=== PATIENT | male | born 1950 | race Caucasian/White ===

== ENCOUNTER 2017-12-09 02:04 | Inpatient (IN) | payer MEDICARE, OTHER ==
[2017-12-09] MEDS: SOD CHLORIDE 0.9% 1,000 ML IV ×2 (03:01→05:24)
[2017-12-09] MEDS: ONDANSETRON 4 MG INJ IV (03:01)
[2017-12-09] MEDS: morphine 4 MG/ML VIAL IV (03:01)
[2017-12-09 03:10] LABS: ADD MAN DIFF? NO
[2017-12-09 03:15] LABS: BASOPHIL # 0.1 10^3/ul (0.0-0.1); BASOPHILS % 0.5 % (0.0-2.0); EOSINOPHILS % 0.3 % (0.0-7.0); HEMATOCRIT 43.9 % (42.0-52.0); HEMOGLOBIN 14.3 g/dl (14.0-18.0); LYMPHOCYTES # 1.8 10^3/ul (0.8-2.9); LYMPHOCYTES % 13.6 % (15.0-51.0); MEAN CORPUSCULAR HEMOGLOBIN 28.4 pg (29.0-33.0); MEAN CORPUSCULAR HGB CONC 32.6 g/dl (32.0-37.0); MEAN CORPUSCULAR VOLUME 87.1 fl (82.0-101.0); MONOCYTES % 7.7 % (0.0-11.0); NEUTROPHILS % 77.6 % (39.0-77.0); PLATELET COUNT 283 10^3/UL (140-415); RED BLOOD COUNT 5.04 10^6/ul (4.70-6.10); RED CELL DISTRIBUTION WIDTH 14.6 % (11.5-14.5)
[2017-12-09 03:15] LABS: WHITE BLOOD COUNT 12.9 10^3/ul (4.8-10.8)
[2017-12-09 03:33] LABS: ALANINE AMINOTRANSFERASE 22 IU/L (13-69); ALBUMIN 4.5 g/dl (3.3-4.9); ALBUMIN/GLOBULIN RATIO 1.32; ALKALINE PHOSPHATASE 115 IU/L (42-121); ANION GAP 16 (8-16); ASPARTATE AMINO TRANSFERASE 30 IU/L (15-46); BILIRUBIN,INDIRECT 0.2 mg/dl (0-1.1); BILIRUBIN,TOTAL 0.2 mg/dl (0.2-1.3); BLOOD UREA NITROGEN 20 mg/dl (7-20); CARBON DIOXIDE 25 mmol/L (21-31); CHLORIDE 101 mmol/L (97-110); CREATININE 0.88 mg/dl (0.61-1.24); GLUCOSE 149 mg/dl (70-220); LIPASE 104 U/L (23-300); POTASSIUM 4.4 mmol/L (3.5-5.1); SODIUM 138 mmol/L (135-144); TOTAL PROTEIN 7.9 g/dl (6.1-8.1)
[2017-12-09 03:44] LABS: LACTIC ACID 3.8 mmol/L (0.5-2.0)
[2017-12-09 04:49] LABS: ADD UMIC NO; UR ASCORBIC ACID NEGATIVE (NEGATIVE); UR BILIRUBIN (Dip) NEGATIVE (NEGATIVE); UR BLOOD (Dip) NEGATIVE (NEGATIVE); UR CLARITY CLEAR (CLEAR); UR COLOR YELLOW (YELLOW); UR GLUCOSE (Dip) NEGATIVE (NEGATIVE); UR KETONES (Dip) 1+ mg/dL (NEGATIVE); UR LEUKOCYTE ESTERASE (Dip) NEGATIVE Leu/ul (NEGATIVE); UR NITRITE (Dip) NEGATIVE (NEGATIVE); UR SPECIFIC GRAVITY (Dip) 1.017 (1.003-1.030); UR TOTAL PROTEIN (Dip) NEGATIVE (NEGATIVE); UR UROBILINOGEN (Dip) NEGATIVE (NEGATIVE)
[2017-12-09] MEDS ORDERED: ONDANSETRON 4 MG INJ IV (06:30)
[2017-12-09] MEDS ORDERED: morphine 2 MG INJ IV (06:30)
[2017-12-09] MEDS: DEXTROSE 5%-0.45% NACL 1,000 ML IV ×3 (07:02→20:54)
[2017-12-09] MEDS: CIPROFLOXACIN 400MG/D5W 200 ML IVPB ×2 (08:27→22:51)
[2017-12-09] MEDS: metroNIDAZOLE 500 MG/NS (PMX) 100 ML IVPB ×3 (08:28→20:54)
[2017-12-09 08:39] LABS: LACTIC ACID 0.9 mmol/L (0.5-2.0)
[2017-12-10 05:26] LABS: ADD MAN DIFF? NO
[2017-12-10] MEDS: metroNIDAZOLE 500 MG/NS (PMX) 100 ML IVPB ×3 (05:27→21:34)
[2017-12-10 05:33] LABS: WHITE BLOOD COUNT 5.4 10^3/ul (4.8-10.8)
[2017-12-10 05:33] LABS: BASOPHILS % 0.7 % (0.0-2.0); EOSINOPHILS # 0.1 10^3/ul (0.0-0.5); EOSINOPHILS % 1.3 % (0.0-7.0); HEMATOCRIT 37.7 % (42.0-52.0); HEMOGLOBIN 12.1 g/dl (14.0-18.0); LYMPHOCYTES % 19.4 % (15.0-51.0); MEAN CORPUSCULAR HEMOGLOBIN 28.7 pg (29.0-33.0); MEAN CORPUSCULAR HGB CONC 32.1 g/dl (32.0-37.0); MEAN CORPUSCULAR VOLUME 89.3 fl (82.0-101.0); MEAN PLATELET VOLUME 9.8 fl (7.4-10.4); MONOCYTE # 0.6 10^3/ul (0.3-0.9); MONOCYTES % 11.4 % (0.0-11.0); NEUTROPHIL # 3.6 10^3/ul (1.6-7.5); PLATELET COUNT 188 10^3/UL (140-415); RED BLOOD COUNT 4.22 10^6/ul (4.70-6.10); RED CELL DISTRIBUTION WIDTH 15.1 % (11.5-14.5)
[2017-12-10 06:13] LABS: ALANINE AMINOTRANSFERASE 25 IU/L (13-69); ALBUMIN 3.2 g/dl (3.3-4.9); ALBUMIN/GLOBULIN RATIO 1.03; ALKALINE PHOSPHATASE 68 IU/L (42-121); ANION GAP 13 (8-16); ASPARTATE AMINO TRANSFERASE 20 IU/L (15-46); BILIRUBIN,INDIRECT 0.1 mg/dl (0-1.1); BILIRUBIN,TOTAL 0.1 mg/dl (0.2-1.3); BLOOD UREA NITROGEN 10 mg/dl (7-20); CALCIUM 7.7 mg/dl (8.4-10.2); CARBON DIOXIDE 26 mmol/L (21-31); CHLORIDE 108 mmol/L (97-110); CREATININE 0.74 mg/dl (0.61-1.24); GLUCOSE 111 mg/dl (70-220); POTASSIUM 3.8 mmol/L (3.5-5.1); SODIUM 143 mmol/L (135-144); TOTAL PROTEIN 6.3 g/dl (6.1-8.1)
[2017-12-10] MEDS: DEXTROSE 5%-0.45% NACL 1,000 ML IV (06:33)
[2017-12-10] MEDS: CIPROFLOXACIN 400MG/D5W 200 ML IVPB ×2 (08:50→20:42)
[2017-12-10] MEDS: KETOROLAC 30 MG INJ IV (10:46)
[2017-12-10] MEDS: FAMOTIDINE 20 MG INJ IV ×2 (11:03→20:43)
[2017-12-10 13:37] LABS: HEMOGLOBIN A1C 5.6 % (0-5.9)
[2017-12-11 05:15] LABS: ADD MAN DIFF? NO; RED CELL DISTRIBUTION WIDTH 14.6 % (11.5-14.5)
[2017-12-11 05:27] LABS: WHITE BLOOD COUNT 5.3 10^3/ul (4.8-10.8)
[2017-12-11 05:27] LABS: BASOPHILS % 0.8 % (0.0-2.0); EOSINOPHILS # 0.1 10^3/ul (0.0-0.5); EOSINOPHILS % 1.5 % (0.0-7.0); HEMATOCRIT 39.6 % (42.0-52.0); HEMOGLOBIN 12.8 g/dl (14.0-18.0); LYMPHOCYTES # 1.1 10^3/ul (0.8-2.9); LYMPHOCYTES % 20.7 % (15.0-51.0); MEAN CORPUSCULAR HEMOGLOBIN 28.6 pg (29.0-33.0); MEAN CORPUSCULAR HGB CONC 32.3 g/dl (32.0-37.0); MEAN CORPUSCULAR VOLUME 88.4 fl (82.0-101.0); MEAN PLATELET VOLUME 9.7 fl (7.4-10.4); MONOCYTE # 0.7 10^3/ul (0.3-0.9); MONOCYTES % 12.3 % (0.0-11.0); NEUTROPHIL # 3.4 10^3/ul (1.6-7.5); NEUTROPHILS % 64.5 % (39.0-77.0); PLATELET COUNT 200 10^3/UL (140-415); RED BLOOD COUNT 4.48 10^6/ul (4.70-6.10)
[2017-12-11 05:43] LABS: MAGNESIUM 2.1 mg/dl (1.7-2.5)
[2017-12-11 05:43] LABS: PHOSPHORUS 2.8 mg/dl (2.5-4.9)
[2017-12-11 05:45] LABS: ALANINE AMINOTRANSFERASE 26 IU/L (13-69); ALBUMIN 3.3 g/dl (3.3-4.9); ALBUMIN/GLOBULIN RATIO 1.03; ALKALINE PHOSPHATASE 72 IU/L (42-121); ANION GAP 13 (8-16); ASPARTATE AMINO TRANSFERASE 22 IU/L (15-46); BILIRUBIN,INDIRECT 0.2 mg/dl (0-1.1); BILIRUBIN,TOTAL 0.2 mg/dl (0.2-1.3); BLOOD UREA NITROGEN 10 mg/dl (7-20); CALCIUM 8.3 mg/dl (8.4-10.2); CARBON DIOXIDE 28 mmol/L (21-31); CHLORIDE 108 mmol/L (97-110); CREATININE 0.82 mg/dl (0.61-1.24); GLUCOSE 91 mg/dl (70-220); POTASSIUM 4.3 mmol/L (3.5-5.1); SODIUM 145 mmol/L (135-144); TOTAL PROTEIN 6.5 g/dl (6.1-8.1)
[2017-12-11] MEDS: metroNIDAZOLE 500 MG/NS (PMX) 100 ML IVPB (06:30)
[2017-12-11] MEDS: FAMOTIDINE 20 MG INJ IV (08:27)
[2017-12-11] MEDS: CIPROFLOXACIN 400MG/D5W 200 ML IVPB (08:27)
== END 2017-12-11 11:50 | disposition home or self-care (01) | DRG 328 ==
LOC: E/R 02:04 → MS2 05:12 → MS1 19:04
PROC: 0D967ZZ Drainage of Stomach, Via Natural or Artificial Opening (ICD-10-PCS; principal; 2017-12-09)
DX: K56.609 Unspecified intestinal obstruction, unspecified as to partial versus complete obstruction (principal); K80.20 Calculus of gallbladder without cholecystitis without obstruction; Z87.19 Personal history of other diseases of the digestive system; Z90.49 Acquired absence of other specified parts of digestive tract
CPT/HCPCS: 36415; 74176; 76705; 80053; 81003; 83036; 83605; 83690; 83735; 84100; 85025; 87045; 96374; 96375; 99285-25

== ENCOUNTER 2018-01-08 14:33 | Inpatient (IN) | payer MEDICARE, OTHER ==
[2018-01-08 17:31] LABS: ADD MAN DIFF? NO
[2018-01-08 17:34] LABS: BASOPHILS % 0.2 % (0.0-2.0); EOSINOPHILS % 0.1 % (0.0-7.0); LYMPHOCYTES % 6.5 % (15.0-51.0); RED CELL DISTRIBUTION WIDTH 14.6 % (11.5-14.5)
[2018-01-08] MEDS: SOD CHLORIDE 0.9% 1,000 ML IV ×2 (17:35→19:25)
[2018-01-08] MEDS: FAMOTIDINE 20 MG INJ IV (17:35)
[2018-01-08] MEDS: morphine 4 MG/ML VIAL IV (17:35)
[2018-01-08] MEDS: ONDANSETRON 4 MG INJ IV (17:35)
[2018-01-08 17:37] LABS: WHITE BLOOD COUNT 12.4 10^3/ul (4.8-10.8)
[2018-01-08 17:37] LABS: HEMOGLOBIN 14.3 g/dl (14.0-18.0); LYMPHOCYTES # 0.8 10^3/ul (0.8-2.9); MEAN CORPUSCULAR HEMOGLOBIN 28.7 pg (29.0-33.0); MEAN CORPUSCULAR HGB CONC 32.5 g/dl (32.0-37.0); MEAN CORPUSCULAR VOLUME 88.2 fl (82.0-101.0); MEAN PLATELET VOLUME 9.6 fl (7.4-10.4); MONOCYTE # 1.2 10^3/ul (0.3-0.9); MONOCYTES % 9.5 % (0.0-11.0); NEUTROPHIL # 10.3 10^3/ul (1.6-7.5); NEUTROPHILS % 83.3 % (39.0-77.0); PLATELET COUNT 247 10^3/UL (140-415); RED BLOOD COUNT 4.99 10^6/ul (4.70-6.10)
[2018-01-08 17:51] LABS: ALANINE AMINOTRANSFERASE 27 IU/L (13-69); ALBUMIN/GLOBULIN RATIO 1.11; ALKALINE PHOSPHATASE 84 IU/L (42-121); ANION GAP 17 (8-16); ASPARTATE AMINO TRANSFERASE 21 IU/L (15-46); BILIRUBIN,INDIRECT 0.4 mg/dl (0-1.1); BILIRUBIN,TOTAL 0.4 mg/dl (0.2-1.3); BLOOD UREA NITROGEN 19 mg/dl (7-20); CARBON DIOXIDE 27 mmol/L (21-31); CHLORIDE 104 mmol/L (97-110); CREATININE 0.75 mg/dl (0.61-1.24); GLUCOSE 108 mg/dl (70-220); LIPASE 55 U/L (23-300); POTASSIUM 4.7 mmol/L (3.5-5.1); SODIUM 143 mmol/L (135-144); TOTAL PROTEIN 7.6 g/dl (6.1-8.1)
[2018-01-08] MEDS ORDERED: ACETAMINOPHEN 325 MG TAB PO ×2 (18:30→19:30)
[2018-01-08] MEDS ORDERED: ONDANSETRON 4 MG INJ IV ×2 (18:30→19:30)
[2018-01-08 19:01] LABS: ADD UMIC YES; UR ASCORBIC ACID NEGATIVE (NEGATIVE); UR BILIRUBIN (Dip) 1+ mg/dL (NEGATIVE); UR BLOOD (Dip) NEGATIVE (NEGATIVE); UR CLARITY CLEAR (CLEAR); UR COLOR AMBER (YELLOW); UR GLUCOSE (Dip) NEGATIVE (NEGATIVE); UR KETONES (Dip) 1+ mg/dL (NEGATIVE); UR LEUKOCYTE ESTERASE (Dip) NEGATIVE Leu/ul (NEGATIVE); UR MUCUS FEW /HPF (NONE SEEN); UR NITRITE (Dip) NEGATIVE (NEGATIVE); UR RBC 2 /HPF (0-5); UR SPECIFIC GRAVITY (Dip) 1.032 (1.003-1.030); UR TOTAL PROTEIN (Dip) 1+ mg/dl (NEGATIVE); UR UROBILINOGEN (Dip) 1+ mg/dL (NEGATIVE); UR WBC 1 /HPF (0-5)
[2018-01-08] MEDS ORDERED: NACL 0.9% 3 ML SYG IV (19:30)
[2018-01-08] MEDS: DEXTROSE 5%-0.45% NACL 1,000 ML IV (21:32)
[2018-01-08] MEDS: morphine 2 MG INJ IV (22:16)
[2018-01-08 23:10] LABS: LACTIC ACID 0.8 mmol/L (0.5-2.0)
[2018-01-09] MEDS ORDERED: HYDROPHILIC BASE 454 GM OINT TOP (02:00)
[2018-01-09] MEDS: CLOBETASOL 0.05% 15 GM OINT TOP ×3 (02:48→20:23)
[2018-01-09] MEDS: PANTOPRAZOLE 40 MG INJ IV (05:48)
[2018-01-09 06:49] LABS: ADD MAN DIFF? NO
[2018-01-09 06:52] LABS: WHITE BLOOD COUNT 7.3 10^3/ul (4.8-10.8)
[2018-01-09 06:52] LABS: BASOPHILS % 0.4 % (0.0-2.0); EOSINOPHILS % 0.4 % (0.0-7.0); HEMATOCRIT 37.1 % (42.0-52.0); HEMOGLOBIN 11.9 g/dl (14.0-18.0); LYMPHOCYTES % 13.8 % (15.0-51.0); MEAN CORPUSCULAR HEMOGLOBIN 28.8 pg (29.0-33.0); MEAN CORPUSCULAR HGB CONC 32.1 g/dl (32.0-37.0); MEAN CORPUSCULAR VOLUME 89.8 fl (82.0-101.0); MEAN PLATELET VOLUME 9.8 fl (7.4-10.4); MONOCYTE # 0.9 10^3/ul (0.3-0.9); NEUTROPHIL # 5.4 10^3/ul (1.6-7.5); NEUTROPHILS % 73.4 % (39.0-77.0); PLATELET COUNT 205 10^3/UL (140-415); RED BLOOD COUNT 4.13 10^6/ul (4.70-6.10); RED CELL DISTRIBUTION WIDTH 14.8 % (11.5-14.5)
[2018-01-09 07:18] LABS: ANION GAP 10 (8-16); BLOOD UREA NITROGEN 15 mg/dl (7-20); CALCIUM 7.6 mg/dl (8.4-10.2); CARBON DIOXIDE 26 mmol/L (21-31); CHLORIDE 109 mmol/L (97-110); CREATININE 0.65 mg/dl (0.61-1.24); GLUCOSE 106 mg/dl (70-220); PHOSPHORUS 2.9 mg/dl (2.5-4.9); SODIUM 141 mmol/L (135-144)
[2018-01-09] MEDS: DEXTROSE 5%-0.45% NACL 1,000 ML IV ×2 (08:46→22:06)
[2018-01-09] MEDS: DIATR MEGLU/DIATRIZOATE SODIUM 120 ML BTL PO (09:17)
[2018-01-09] MEDS: AQUAPHOR 52.5 GM OINT TOP ×2 (09:18→20:23)
[2018-01-09] MEDS: morphine 2 MG INJ IV (09:29)
[2018-01-10] MEDS: DEXTROSE 5%-0.45% NACL 1,000 ML IV (04:46)
[2018-01-10] MEDS: PANTOPRAZOLE 40 MG INJ IV (05:44)
[2018-01-10 06:06] LABS: ADD MAN DIFF? NO
[2018-01-10 06:09] LABS: WHITE BLOOD COUNT 4.6 10^3/ul (4.8-10.8)
[2018-01-10 06:09] LABS: BASOPHILS % 0.9 % (0.0-2.0); EOSINOPHILS # 0.1 10^3/ul (0.0-0.5); EOSINOPHILS % 2.2 % (0.0-7.0); HEMATOCRIT 39.8 % (42.0-52.0); HEMOGLOBIN 12.4 g/dl (14.0-18.0); LYMPHOCYTES # 1.2 10^3/ul (0.8-2.9); LYMPHOCYTES % 25.6 % (15.0-51.0); MEAN CORPUSCULAR HEMOGLOBIN 28.2 pg (29.0-33.0); MEAN CORPUSCULAR HGB CONC 31.2 g/dl (32.0-37.0); MEAN CORPUSCULAR VOLUME 90.5 fl (82.0-101.0); MEAN PLATELET VOLUME 10.1 fl (7.4-10.4); MONOCYTE # 0.7 10^3/ul (0.3-0.9); MONOCYTES % 14.4 % (0.0-11.0); NEUTROPHIL # 2.6 10^3/ul (1.6-7.5); NEUTROPHILS % 56.5 % (39.0-77.0); PLATELET COUNT 226 10^3/UL (140-415)
[2018-01-10 06:33] LABS: ANION GAP 14 (8-16); BLOOD UREA NITROGEN 10 mg/dl (7-20); CARBON DIOXIDE 27 mmol/L (21-31); CHLORIDE 108 mmol/L (97-110); CREATININE 0.74 mg/dl (0.61-1.24); GLUCOSE 99 mg/dl (70-220); MAGNESIUM 2.1 mg/dl (1.7-2.5); POTASSIUM 4.4 mmol/L (3.5-5.1); SODIUM 145 mmol/L (135-144)
[2018-01-10] MEDS: CLOBETASOL 0.05% 15 GM OINT TOP (09:31)
[2018-01-10] MEDS: AQUAPHOR 52.5 GM OINT TOP (09:31)
== END 2018-01-10 18:43 | disposition home or self-care (01) | DRG 390 ==
LOC: E/R 14:33 → PP2 18:22
DX: K56.50 Intestinal adhesions [bands], unspecified as to partial versus complete obstruction (principal); L40.9 Psoriasis, unspecified
CPT/HCPCS: 71045; 74019; 74176; 80048; 80053; 81001; 83605; 83690; 83735; 84100; 85025; 96374; 96375; 99291-25

== ENCOUNTER → 2018-04-11 21:36 | Emergency (ER) | payer SELFPAY, OTHER, MEDICARE | END | disposition left against medical advice (07) | LOC: E/R 21:36 | DX: Z53.21 Procedure and treatment not carried out due to patient leaving prior to being seen by health care provider (principal) ==

== ENCOUNTER 2018-11-06 08:33 | Inpatient (IN) | payer MEDICARE, OTHER ==
[2018-11-06 09:27] LABS: ADD MAN DIFF? NO
[2018-11-06 09:28] LABS: WHITE BLOOD COUNT 8.5 10^3/ul (4.8-10.8)
[2018-11-06 09:28] LABS: BASOPHILS % 0.4 % (0.0-2.0); EOSINOPHILS # 0.1 10^3/ul (0.0-0.5); EOSINOPHILS % 0.7 % (0.0-7.0); HEMATOCRIT 37.6 % (42.0-52.0); HEMOGLOBIN 11.6 g/dl (14.0-18.0); LYMPHOCYTES % 11.5 % (15.0-51.0); MEAN CORPUSCULAR HEMOGLOBIN 26.1 pg (29.0-33.0); MEAN CORPUSCULAR HGB CONC 30.9 g/dl (32.0-37.0); MEAN CORPUSCULAR VOLUME 84.5 fl (82.0-101.0); MEAN PLATELET VOLUME 9.7 fl (7.4-10.4); MONOCYTE # 1.1 10^3/ul (0.3-0.9); MONOCYTES % 13.1 % (0.0-11.0); NEUTROPHIL # 6.3 10^3/ul (1.6-7.5); NEUTROPHILS % 73.9 % (39.0-77.0); PLATELET COUNT 187 10^3/UL (140-415); RED BLOOD COUNT 4.45 10^6/ul (4.70-6.10); RED CELL DISTRIBUTION WIDTH 17.4 % (11.5-14.5)
[2018-11-06] MEDS: ONDANSETRON 4 MG INJ IV ×2 (09:29→22:51)
[2018-11-06] MEDS: SOD CHLORIDE 0.9% 1,000 ML IV (09:29)
[2018-11-06] MEDS: morphine 4 MG/ML VIAL IV (09:29)
[2018-11-06] MEDS ORDERED: ACETAMINOPHEN 325 MG TAB PO (09:30)
[2018-11-06] MEDS ORDERED: ONDANSETRON 4 MG INJ IV (09:30)
[2018-11-06 09:48] LABS: INR 0.95; PROTIME 12.8 Sec (11.9-14.9)
[2018-11-06 09:49] LABS: ALANINE AMINOTRANSFERASE 25 IU/L (13-69); ALBUMIN 3.8 g/dl (3.3-4.9); ALBUMIN/GLOBULIN RATIO 1.26; ALKALINE PHOSPHATASE 76 IU/L (42-121); ANION GAP 11 (5-13); ASPARTATE AMINO TRANSFERASE 25 IU/L (15-46); BILIRUBIN,INDIRECT 0.1 mg/dl (0-1.1); BILIRUBIN,TOTAL 0.1 mg/dl (0.2-1.3); BLOOD UREA NITROGEN 10 mg/dl (7-20); CALCIUM 8.6 mg/dl (8.4-10.2); CARBON DIOXIDE 27 mmol/L (21-31); CHLORIDE 101 mmol/L (97-110); CREATININE 0.69 mg/dl (0.61-1.24); Estimated GFR > 60 mL/min (>60); GLUCOSE 107 mg/dl (70-220); LIPASE 58 U/L (23-300); PARTIAL THROMBOPLASTIN TIME 29.5 Sec (23.0-35.0); POTASSIUM 3.7 mmol/L (3.5-5.1); SODIUM 139 mmol/L (135-144); TOTAL PROTEIN 6.8 g/dl (6.1-8.1)
[2018-11-06 09:58] LABS: TROPONIN-I < 0.012 ng/ml (0.000-0.120)
[2018-11-06] MEDS ORDERED: NACL 0.9% 3 ML SYG IV (11:30)
[2018-11-06] MEDS: HYDROmorphONE 0.5 MG/0.5 ML SYG IV (13:04)
[2018-11-06] MEDS: SOD CHLORIDE 0.45% 1,000 ML IV ×3 (13:20→22:52)
[2018-11-06] MEDS: IOHEXOL 14.3 MG(I)/ML (ADULT) BTL PO (13:21)
[2018-11-06] MEDS: IOHEXOL 300MG/ML 150 ML BTL (16:49)
[2018-11-06] MEDS: SOD CHLORIDE 0.9% 100 ML (16:49)
[2018-11-06] MEDS: PIPER-TAZO 3.375 GM IV (PMX) 100 ML IVPB (20:40)
[2018-11-07] MEDS: PIPER-TAZO 3.375 GM IV (PMX) 100 ML IVPB ×4 (01:15→17:53)
[2018-11-07] MEDS: ACETAMINOPHEN 1000MG/100ML IV 100 ML IVPB ×2 (02:27→14:32)
[2018-11-07 06:21] LABS: ADD MAN DIFF? NO
[2018-11-07 06:32] LABS: BASOPHILS % 0.2 % (0.0-2.0); EOSINOPHILS % 0.1 % (0.0-7.0); HEMATOCRIT 32.5 % (42.0-52.0); HEMOGLOBIN 10.2 g/dl (14.0-18.0); LYMPHOCYTES % 5.9 % (15.0-51.0); MEAN CORPUSCULAR HEMOGLOBIN 26.2 pg (29.0-33.0); MEAN CORPUSCULAR HGB CONC 31.4 g/dl (32.0-37.0); MEAN CORPUSCULAR VOLUME 83.5 fl (82.0-101.0); MEAN PLATELET VOLUME 9.6 fl (7.4-10.4); MONOCYTE # 1.5 10^3/ul (0.3-0.9); MONOCYTES % 8.8 % (0.0-11.0); NEUTROPHIL # 14.4 10^3/ul (1.6-7.5); NEUTROPHILS % 84.4 % (39.0-77.0); PLATELET COUNT 166 10^3/UL (140-415); RED BLOOD COUNT 3.89 10^6/ul (4.70-6.10); RED CELL DISTRIBUTION WIDTH 17.2 % (11.5-14.5)
[2018-11-07 06:45] LABS: HEMOGLOBIN A1C 5.4 % (0-5.9)
[2018-11-07 06:56] LABS: ALANINE AMINOTRANSFERASE 24 IU/L (13-69); ALBUMIN/GLOBULIN RATIO 1.07; ALKALINE PHOSPHATASE 59 IU/L (42-121); ANION GAP 10 (5-13); ASPARTATE AMINO TRANSFERASE 29 IU/L (15-46); BILIRUBIN,INDIRECT 0.6 mg/dl (0-1.1); BILIRUBIN,TOTAL 0.6 mg/dl (0.2-1.3); BLOOD UREA NITROGEN 10 mg/dl (7-20); CALCIUM 7.4 mg/dl (8.4-10.2); CARBON DIOXIDE 25 mmol/L (21-31); CHLORIDE 94 mmol/L (97-110); CREATININE 0.88 mg/dl (0.61-1.24); Estimated GFR > 60 mL/min (>60); GLUCOSE 80 mg/dl (70-220); POTASSIUM 3.5 mmol/L (3.5-5.1); SODIUM 129 mmol/L (135-144); TOTAL PROTEIN 5.8 g/dl (6.1-8.1)
[2018-11-07] MEDS: SOD CHLORIDE 0.45% 1,000 ML IV ×2 (10:20→18:33)
[2018-11-07] MEDS: SOD CHLORIDE 0.9% 500 ML IV ×2 (15:03→20:16)
[2018-11-07] MEDS: ALBUMIN HUMAN 25% 100 ML IV (18:00)
[2018-11-07 21:27] LABS: ALBUMIN 2.8 g/dl (3.3-4.9); ANION GAP 10 (5-13); BLOOD UREA NITROGEN 10 mg/dl (7-20); CALCIUM 7.6 mg/dl (8.4-10.2); CARBON DIOXIDE 22 mmol/L (21-31); CHLORIDE 96 mmol/L (97-110); CREATININE 0.88 mg/dl (0.61-1.24); GLUCOSE 77 mg/dl (70-220); PHOSPHORUS 4.3 mg/dl (2.5-4.9); POTASSIUM 3.6 mmol/L (3.5-5.1); SODIUM 128 mmol/L (135-144)
[2018-11-07] MEDS: SOD CHLORIDE 0.9% 1,000 ML IV (21:30)
[2018-11-07] MEDS: MEROPENEM 1 GM/50ML(PMX) 50 ML IVPB (22:00)
[2018-11-07] MEDS: LIDOCAINE 1% (MPF) 30 ML INJ (23:26)
[2018-11-07] MEDS: BUPIVACAINE 0.5%/EPI (SDV) 30 ML INJ (23:26)
[2018-11-08] MEDS ORDERED: GLYCOPYRROLATE 0.4 MG INJ
[2018-11-08] MEDS ORDERED: NEOSTIGMINE 3 MG/3 ML SYRINGE
[2018-11-08] MEDS ORDERED: ROCURONIUM 50 MG INJ
[2018-11-08] MEDS ORDERED: LIDOCAINE 2% (SDV) 5 ML INJ
[2018-11-08] MEDS ORDERED: FENTAnyl 250MCG INJ
[2018-11-08] MEDS ORDERED: morphine 10 MG INJ
[2018-11-08] MEDS ORDERED: ONDANSETRON 4 MG INJ
[2018-11-08] MEDS ORDERED: ETOMIDATE 20 MG INJ
[2018-11-08] MEDS ORDERED: MIDAZOLAM 1 MG/ML 2 ML INJ
[2018-11-08] MEDS: ALBUMIN HUMAN 25% 100 ML IV ×3 (01:30→08:20)
[2018-11-08] MEDS ORDERED: HYDROmorphONE 1 MG/5 ML IV SYRINGE IV ×2 (01:58→02:00)
[2018-11-08] MEDS ORDERED: MEPERIDINE 25 MG INJ IV (02:00)
[2018-11-08] MEDS ORDERED: FENTAnyl 50 MCG/ML VIAL IV (02:00)
[2018-11-08] MEDS ORDERED: METOCLOPRAMIDE 10 MG INJ IV (02:00)
[2018-11-08] MEDS ORDERED: EPHEDrine SULFATE 50 MG/5 ML SYG IV (02:00)
[2018-11-08] MEDS ORDERED: DIPHENHYDRAMINE 50 MG INJ IV (02:00)
[2018-11-08] MEDS: HYDROmorphONE 1 MG/5 ML IV SYRINGE IV (02:10)
[2018-11-08] MEDS: D5W-0.45 NACL + KCL 20 MEQ 1,000 ML IV (02:16)
[2018-11-08] MEDS ORDERED: HYDROmorphONE 0.5 MG/0.5 ML SYG IV (02:30)
[2018-11-08] MEDS ORDERED: ACETAMINOPHEN 325 MG TAB PO (02:30)
[2018-11-08] MEDS: ONDANSETRON 4 MG INJ IV ×4 (03:13→18:39)
[2018-11-08] MEDS: HYDROmorphONE 0.5 MG/0.5 ML SYG IV ×3 (03:47→18:39)
[2018-11-08] MEDS: SOD CHLORIDE 0.9% 1,000 ML IV ×4 (04:02→22:37)
[2018-11-08] MEDS ORDERED: PIPER-TAZO 3.375 GM IV (PMX) 100 ML IVPB (06:00)
[2018-11-08 06:36] LABS: ADD MAN DIFF? NO
[2018-11-08 06:38] LABS: WHITE BLOOD COUNT 16.4 10^3/ul (4.8-10.8)
[2018-11-08 06:38] LABS: BASOPHILS % 0.2 % (0.0-2.0); HEMATOCRIT 27.8 % (42.0-52.0); HEMOGLOBIN 8.5 g/dl (14.0-18.0); LYMPHOCYTES # 0.7 10^3/ul (0.8-2.9); LYMPHOCYTES % 4.2 % (15.0-51.0); MEAN CORPUSCULAR HEMOGLOBIN 26.3 pg (29.0-33.0); MEAN CORPUSCULAR HGB CONC 30.6 g/dl (32.0-37.0); MEAN CORPUSCULAR VOLUME 86.1 fl (82.0-101.0); MEAN PLATELET VOLUME 9.4 fl (7.4-10.4); MONOCYTE # 1.4 10^3/ul (0.3-0.9); MONOCYTES % 8.8 % (0.0-11.0); NEUTROPHILS % 85.3 % (39.0-77.0); PLATELET COUNT 170 10^3/UL (140-415); POSITIVE DIFF @See below; RED BLOOD COUNT 3.23 10^6/ul (4.70-6.10); RED CELL DISTRIBUTION WIDTH 17.4 % (11.5-14.5)
[2018-11-08] MEDS: MEROPENEM 1 GM/50ML(PMX) 50 ML IVPB ×3 (06:50→21:43)
[2018-11-08 07:09] LABS: PROTIME 18.2 Sec (11.9-14.9); PT RATIO 1.4
[2018-11-08 07:14] LABS: ANION GAP 7 (5-13); BLOOD UREA NITROGEN 14 mg/dl (7-20); CALCIUM 7.2 mg/dl (8.4-10.2); CARBON DIOXIDE 27 mmol/L (21-31); CHLORIDE 100 mmol/L (97-110); CREATININE 1.03 mg/dl (0.61-1.24); Estimated GFR > 60 mL/min (>60); GLUCOSE 100 mg/dl (70-220); MAGNESIUM 1.7 mg/dl (1.7-2.5); PHOSPHORUS 4.1 mg/dl (2.5-4.9); POTASSIUM 4.4 mmol/L (3.5-5.1); SODIUM 134 mmol/L (135-144)
[2018-11-08 08:10] LABS: ANISOCYTOSIS 1+ (0-0); BAND NEUTROPHILS #M 2.2 10^3/ul (0.0-0.6); BAND NEUTROPHILS % (M) 14 % (0-4); BASOPHIL #M 0.1 10^3/ul (0.0-0.0); BASOPHILS % (M) 1 % (0-2); BURR CELLS 1+ (0-0); GIANT THROMBO% (M) 1 % (0-0); LYMPHOCYTES #M 0.6 10^3/ul (0.8-2.9); LYMPHOCYTES % (M) 4 % (15-51); METAMYELOCYTES #M 0.4 10^3/ul (0.0-0.0); METAMYELOCYTES %M 3 % (0-0); MONOCYTE #M 0.1 10^3/ul (0.3-0.9); MONOCYTES % (M) 1 % (0-11); PLATELET ESTIMATE NORMAL; POIKILOCYTOSIS 1+ (0-0); SEGMENTED NEUTROPHILS (M) % 77 % (39-77)
[2018-11-08 08:17] LABS: ALANINE AMINOTRANSFERASE 29 IU/L (13-69); ALBUMIN 2.8 g/dl (3.3-4.9); ALKALINE PHOSPHATASE 52 IU/L (42-121); ASPARTATE AMINO TRANSFERASE 42 IU/L (15-46); BILIRUBIN,INDIRECT 0.2 mg/dl (0-1.1); BILIRUBIN,TOTAL 0.2 mg/dl (0.2-1.3); TOTAL PROTEIN 5.3 g/dl (6.1-8.1)
[2018-11-08] MEDS: FAMOTIDINE 20 MG INJ IV ×2 (08:18→20:10)
[2018-11-08 11:33] LABS: ADD UMIC YES; UR ASCORBIC ACID NEGATIVE (NEGATIVE); UR BILIRUBIN (Dip) NEGATIVE (NEGATIVE); UR BLOOD (Dip) 1+ mg/dL (NEGATIVE); UR CLARITY SLIGHTLY CLOUDY (CLEAR); UR COLOR YELLOW (YELLOW); UR GLUCOSE (Dip) 1+ mg/dL (NEGATIVE); UR KETONES (Dip) 1+ mg/dL (NEGATIVE); UR LEUKOCYTE ESTERASE (Dip) NEGATIVE Leu/ul (NEGATIVE); UR NITRITE (Dip) NEGATIVE (NEGATIVE); UR RBC 1 /HPF (0-5); UR SPECIFIC GRAVITY (Dip) 1.017 (1.003-1.030); UR TOTAL PROTEIN (Dip) NEGATIVE (NEGATIVE); UR UROBILINOGEN (Dip) 1+ mg/dL (NEGATIVE); UR WBC 1 /HPF (0-5)
[2018-11-08 11:46] LABS: SODIUM,URINE RANDOM 69 mmol/L (30-90)
[2018-11-08 11:46] LABS: CREATININE,URINE RANDOM 101.32 mg/dl (20-370)
[2018-11-08 12:34] LABS: OSMOLALITY,URINE 454 mOsm/kg (250-1200)
[2018-11-09] MEDS: HYDROmorphONE 0.5 MG/0.5 ML SYG IV (00:51)
[2018-11-09] MEDS: ONDANSETRON 4 MG INJ IV (04:10)
[2018-11-11 13:12] LABS: CREATININE, RANDOM URINE 102 mg/dL (20-320); MICROALBUMIN 3.6 mg/dL; MICROALBUMIN/CREATININE RATIO 35 (<30)
== END 2018-11-09 05:21 | disposition short-term general hospital (02) | DRG 907 ==
LOC: E/R 08:33 → PP2 09:29
PROC: 0FT44ZZ Resection of Gallbladder, Percutaneous Endoscopic Approach (ICD-10-PCS; principal; 2018-11-07 01:45)
DX: T85.590A Other mechanical complication of bile duct prosthesis, initial encounter (principal); A41.9 Sepsis, unspecified organism; K80.00 Calculus of gallbladder with acute cholecystitis without obstruction; E87.1 Hypo-osmolality and hyponatremia; I95.9 Hypotension, unspecified; T85.79XA Infection and inflammatory reaction due to other internal prosthetic devices, implants and grafts, initial encounter; K82.8 Other specified diseases of gallbladder; K21.9 Gastro-esophageal reflux disease without esophagitis; L40.9 Psoriasis, unspecified; G89.4 Chronic pain syndrome; Y83.8 Other surgical procedures as the cause of abnormal reaction of the patient, or of later complication, without mention of misadventure at the time of the procedure; Y73.8 Miscellaneous gastroenterology and urology devices associated with adverse incidents, not elsewhere classified; Y92.019 Unspecified place in single-family (private) house as the place of occurrence of the external cause
CPT/HCPCS: 36415; 74177; 74181; 78226; 80048; 80053; 80069; 80076; 81001; 81003; 82043; 83036; 83690; 83735; 83935; 84100; 84155; 84300; 84484; 85025; 85610; 85730; 87040; 87070; 87075; 87081; 87102; 87116; 88304; 93005; 96374; 96375; 99285-25

== ENCOUNTER 2018-11-28 15:08 | Emergency (ER) | payer MEDICARE, OTHER ==
[2018-11-28 22:21] LABS: HEMATOCRIT 31.3 % (42.0-52.0); HEMOGLOBIN 9.6 g/dl (14.0-18.0); MEAN CORPUSCULAR HEMOGLOBIN 25.9 pg (29.0-33.0); MEAN CORPUSCULAR HGB CONC 30.7 g/dl (32.0-37.0); MEAN CORPUSCULAR VOLUME 84.4 fl (82.0-101.0); MEAN PLATELET VOLUME 9.6 fl (7.4-10.4); PLATELET COUNT 167 10^3/UL (140-415); RED BLOOD COUNT 3.71 10^6/ul (4.70-6.10); RED CELL DISTRIBUTION WIDTH 18.4 % (11.5-14.5)
[2018-11-28 22:24] LABS: ADD MAN DIFF? YES
[2018-11-28 22:26] LABS: ADD UMIC NO; UR ASCORBIC ACID 20 mg/dL (NEGATIVE); UR BILIRUBIN (Dip) NEGATIVE (NEGATIVE); UR BLOOD (Dip) NEGATIVE (NEGATIVE); UR CLARITY CLEAR (CLEAR); UR COLOR YELLOW (YELLOW); UR GLUCOSE (Dip) NEGATIVE (NEGATIVE); UR KETONES (Dip) TRACE mg/dL (NEGATIVE); UR LEUKOCYTE ESTERASE (Dip) NEGATIVE Leu/ul (NEGATIVE); UR NITRITE (Dip) NEGATIVE (NEGATIVE); UR SPECIFIC GRAVITY (Dip) 1.023 (1.003-1.030); UR TOTAL PROTEIN (Dip) NEGATIVE (NEGATIVE); UR UROBILINOGEN (Dip) 2+ mg/dL (NEGATIVE)
[2018-11-28 22:36] LABS: ALANINE AMINOTRANSFERASE 21 IU/L (13-69); ALBUMIN 3.7 g/dl (3.3-4.9); ALBUMIN/GLOBULIN RATIO 0.92; ALKALINE PHOSPHATASE 120 IU/L (42-121); ANION GAP 10 (5-13); ASPARTATE AMINO TRANSFERASE 31 IU/L (15-46); BILIRUBIN,INDIRECT 0.2 mg/dl (0-1.1); BILIRUBIN,TOTAL 0.2 mg/dl (0.2-1.3); BLOOD UREA NITROGEN 11 mg/dl (7-20); CALCIUM 8.6 mg/dl (8.4-10.2); CARBON DIOXIDE 29 mmol/L (21-31); CHLORIDE 97 mmol/L (97-110); CREATININE 0.86 mg/dl (0.61-1.24); Estimated GFR > 60 mL/min (>60); GLUCOSE 112 mg/dl (70-220); LIPASE 79 U/L (23-300); POTASSIUM 4.4 mmol/L (3.5-5.1); SODIUM 136 mmol/L (135-144); TOTAL PROTEIN 7.7 g/dl (6.1-8.1)
[2018-11-28 22:45] LABS: BAND NEUTROPHILS #M 0.1 10^3/ul (0.0-0.6); BAND NEUTROPHILS % (M) 2 % (0-4); LYMPHOCYTES % (M) 21 % (15-51); MONOCYTE #M 0.7 10^3/ul (0.3-0.9); MONOCYTES % (M) 15 % (0-11); OVALOCYTES 1+ (0-0); PLATELET ESTIMATE NORMAL; POIKILOCYTOSIS 1+ (0-0); SEG NEUT #M 3.1 10^3/ul (1.6-7.5); SEGMENTED NEUTROPHILS (M) % 62 % (39-77); SMUDGE%M 3 % (0-0)
== END 2018-11-29 00:34 | disposition home or self-care (01) ==
LOC: FTE 11-29 00:34
DX: R50.9 Fever, unspecified (principal); R11.2 Nausea with vomiting, unspecified; R09.89 Other specified symptoms and signs involving the circulatory and respiratory systems; R42 Dizziness and giddiness; J45.909 Unspecified asthma, uncomplicated
CPT/HCPCS: 71046; 80053; 81003; 83690; 85025; 87400; 99284-25

== ENCOUNTER 2019-03-24 21:19 | Inpatient (IN) | payer MEDICARE, OTHER ==
[2019-03-24 22:23] LABS: ADD MAN DIFF? NO
[2019-03-24 22:25] LABS: BASOPHILS % 0.3 % (0.0-2.0); EOSINOPHILS # 0.1 10^3/ul (0.0-0.5); EOSINOPHILS % 0.7 % (0.0-7.0); HEMATOCRIT 37.3 % (42.0-52.0); HEMOGLOBIN 12.1 g/dl (14.0-18.0); LYMPHOCYTES # 1.5 10^3/ul (0.8-2.9); MEAN CORPUSCULAR HEMOGLOBIN 26.7 pg (29.0-33.0); MEAN CORPUSCULAR HGB CONC 32.4 g/dl (32.0-37.0); MEAN CORPUSCULAR VOLUME 82.3 fl (82.0-101.0); MEAN PLATELET VOLUME 9.7 fl (7.4-10.4); MONOCYTE # 1.1 10^3/ul (0.3-0.9); MONOCYTES % 10.4 % (0.0-11.0); NEUTROPHIL # 7.4 10^3/ul (1.6-7.5); NEUTROPHILS % 73.3 % (39.0-77.0); PLATELET COUNT 180 10^3/UL (140-415); RED BLOOD COUNT 4.53 10^6/ul (4.70-6.10); RED CELL DISTRIBUTION WIDTH 17.6 % (11.5-14.5)
[2019-03-24 22:25] LABS: WHITE BLOOD COUNT 10.1 10^3/ul (4.8-10.8)
[2019-03-24] MEDS: SOD CHLORIDE 0.9% 1,000 ML IV (22:25)
[2019-03-24] MEDS: morphine 4 MG/ML VIAL IV (22:26)
[2019-03-24] MEDS: ONDANSETRON 4 MG INJ IV (22:26)
[2019-03-24 22:44] LABS: ALANINE AMINOTRANSFERASE 24 IU/L (13-69); ALBUMIN 4.4 g/dl (3.3-4.9); ALBUMIN/GLOBULIN RATIO 1.22; ALKALINE PHOSPHATASE 104 IU/L (42-121); ANION GAP 10 (5-13); ASPARTATE AMINO TRANSFERASE 30 IU/L (15-46); BILIRUBIN,INDIRECT 0.5 mg/dl (0-1.1); BILIRUBIN,TOTAL 0.5 mg/dl (0.2-1.3); BLOOD UREA NITROGEN 19 mg/dl (7-20); CARBON DIOXIDE 25 mmol/L (21-31); CHLORIDE 105 mmol/L (97-110); CREATININE 0.83 mg/dl (0.61-1.24); Estimated GFR > 60 mL/min (>60); GLUCOSE 125 mg/dl (70-220); INR 0.81; LIPASE 69 U/L (23-300); POTASSIUM 3.3 mmol/L (3.5-5.1); PROTIME 11.3 Sec (11.9-14.9); PT RATIO 0.9; SODIUM 140 mmol/L (135-144)
[2019-03-24 22:45] LABS: PARTIAL THROMBOPLASTIN TIME 24.7 Sec (23.0-35.0)
[2019-03-24 23:44] LABS: ADD UMIC NO; UR ASCORBIC ACID 40 mg/dL (NEGATIVE); UR BILIRUBIN (Dip) NEGATIVE (NEGATIVE); UR BLOOD (Dip) NEGATIVE (NEGATIVE); UR CLARITY SLIGHTLY CLOUDY (CLEAR); UR COLOR AMBER (YELLOW); UR GLUCOSE (Dip) NEGATIVE (NEGATIVE); UR KETONES (Dip) 1+ mg/dL (NEGATIVE); UR LEUKOCYTE ESTERASE (Dip) NEGATIVE Leu/ul (NEGATIVE); UR MUCUS MODERATE /HPF (NONE SEEN); UR NITRITE (Dip) NEGATIVE (NEGATIVE); UR RBC 3 /HPF (0-5); UR SPECIFIC GRAVITY (Dip) 1.029 (1.003-1.030); UR TOTAL PROTEIN (Dip) NEGATIVE (NEGATIVE); UR UROBILINOGEN (Dip) NEGATIVE (NEGATIVE); UR WBC 1 /HPF (0-5)
[2019-03-25] MEDS ORDERED: ONDANSETRON 4 MG INJ IV (01:30)
[2019-03-25] MEDS ORDERED: ACETAMINOPHEN 325 MG TAB PO (01:30)
[2019-03-25] MEDS ORDERED: NACL 0.9% 3 ML SYG IV (05:30)
[2019-03-25] MEDS ORDERED: ALBUTEROL/IPRATROPIUM (NEB) 3 ML AMP HHN (05:30)
[2019-03-25 05:33] LABS: ADD MAN DIFF? NO
[2019-03-25 05:38] LABS: WHITE BLOOD COUNT 8.6 10^3/ul (4.8-10.8)
[2019-03-25 05:38] LABS: BASOPHILS % 0.4 % (0.0-2.0); EOSINOPHILS # 0.1 10^3/ul (0.0-0.5); EOSINOPHILS % 0.8 % (0.0-7.0); HEMATOCRIT 35.1 % (42.0-52.0); HEMOGLOBIN 11.1 g/dl (14.0-18.0); LYMPHOCYTES # 1.4 10^3/ul (0.8-2.9); LYMPHOCYTES % 15.9 % (15.0-51.0); MEAN CORPUSCULAR HEMOGLOBIN 26.6 pg (29.0-33.0); MEAN CORPUSCULAR HGB CONC 31.6 g/dl (32.0-37.0); MEAN CORPUSCULAR VOLUME 84.2 fl (82.0-101.0); MEAN PLATELET VOLUME 9.5 fl (7.4-10.4); MONOCYTE # 0.8 10^3/ul (0.3-0.9); MONOCYTES % 9.2 % (0.0-11.0); NEUTROPHIL # 6.3 10^3/ul (1.6-7.5); NEUTROPHILS % 73.3 % (39.0-77.0); PLATELET COUNT 156 10^3/UL (140-415); RED BLOOD COUNT 4.17 10^6/ul (4.70-6.10)
[2019-03-25] MEDS: DEXTROSE 5%-0.45% NACL 1,000 ML IV ×2 (05:47→18:19)
[2019-03-25] MEDS: morphine 2 MG INJ IV ×4 (05:47→22:27)
[2019-03-25 06:05] LABS: ALANINE AMINOTRANSFERASE 23 IU/L (13-69); ALBUMIN 3.7 g/dl (3.3-4.9); ALBUMIN/GLOBULIN RATIO 1.19; ALKALINE PHOSPHATASE 76 IU/L (42-121); ANION GAP 5 (5-13); ASPARTATE AMINO TRANSFERASE 26 IU/L (15-46); BILIRUBIN,INDIRECT 0.6 mg/dl (0-1.1); BILIRUBIN,TOTAL 0.6 mg/dl (0.2-1.3); BLOOD UREA NITROGEN 17 mg/dl (7-20); CARBON DIOXIDE 29 mmol/L (21-31); CHLORIDE 109 mmol/L (97-110); CREATININE 0.66 mg/dl (0.61-1.24); Estimated GFR > 60 mL/min (>60); GLUCOSE 118 mg/dl (70-220); SODIUM 143 mmol/L (135-144); TOTAL PROTEIN 6.8 g/dl (6.1-8.1)
[2019-03-25] MEDS: POTASSIUM CHLORIDE 100 ML IVPB (06:39)
[2019-03-25] MEDS: FAMOTIDINE 20 MG INJ IV ×2 (09:37→20:13)
[2019-03-25] MEDS: ONDANSETRON 4 MG INJ IV ×2 (10:40→22:27)
[2019-03-25] MEDS ORDERED: ACETAMINOPHEN 1000MG/100ML IV 100 ML IVPB (23:00)
[2019-03-26] MEDS: DEXTROSE 5%-0.45% NACL 1,000 ML IV ×3 (01:18→15:17)
[2019-03-26 05:54] LABS: ADD MAN DIFF? NO
[2019-03-26 06:00] LABS: WHITE BLOOD COUNT 6.4 10^3/ul (4.8-10.8)
[2019-03-26 06:00] LABS: BASOPHILS % 0.5 % (0.0-2.0); EOSINOPHILS # 0.1 10^3/ul (0.0-0.5); EOSINOPHILS % 1.3 % (0.0-7.0); HEMATOCRIT 35.3 % (42.0-52.0); HEMOGLOBIN 11.2 g/dl (14.0-18.0); LYMPHOCYTES # 1.2 10^3/ul (0.8-2.9); LYMPHOCYTES % 18.7 % (15.0-51.0); MEAN CORPUSCULAR HEMOGLOBIN 27.2 pg (29.0-33.0); MEAN CORPUSCULAR HGB CONC 31.7 g/dl (32.0-37.0); MEAN CORPUSCULAR VOLUME 85.7 fl (82.0-101.0); MEAN PLATELET VOLUME 10.2 fl (7.4-10.4); MONOCYTE # 0.9 10^3/ul (0.3-0.9); MONOCYTES % 13.9 % (0.0-11.0); NEUTROPHIL # 4.2 10^3/ul (1.6-7.5); NEUTROPHILS % 65.3 % (39.0-77.0); PLATELET COUNT 152 10^3/UL (140-415); RED BLOOD COUNT 4.12 10^6/ul (4.70-6.10)
[2019-03-26 06:47] LABS: ANION GAP 2 (5-13); BLOOD UREA NITROGEN 10 mg/dl (7-20); CALCIUM 7.6 mg/dl (8.4-10.2); CARBON DIOXIDE 30 mmol/L (21-31); CHLORIDE 108 mmol/L (97-110); Estimated GFR > 60 mL/min (>60); GLUCOSE 109 mg/dl (70-220); PHOSPHORUS 2.5 mg/dl (2.5-4.9); POTASSIUM 4.7 mmol/L (3.5-5.1); SODIUM 140 mmol/L (135-144)
[2019-03-26] MEDS: FAMOTIDINE 20 MG INJ IV ×2 (08:19→21:29)
[2019-03-26] MEDS: ONDANSETRON 4 MG INJ IV ×3 (08:22→21:30)
[2019-03-26] MEDS: morphine 2 MG INJ IV (15:21)
[2019-03-27] MEDS: ACETAMINOPHEN 1000MG/100ML IV 100 ML IVPB (00:13)
[2019-03-27] MEDS: DEXTROSE 5%-0.45% NACL 1,000 ML IV ×2 (02:13→13:18)
[2019-03-27 06:26] LABS: ADD MAN DIFF? NO
[2019-03-27 06:30] LABS: WHITE BLOOD COUNT 5.1 10^3/ul (4.8-10.8)
[2019-03-27 06:30] LABS: BASOPHILS % 0.6 % (0.0-2.0); EOSINOPHILS # 0.1 10^3/ul (0.0-0.5); EOSINOPHILS % 1.8 % (0.0-7.0); HEMATOCRIT 37.7 % (42.0-52.0); HEMOGLOBIN 11.7 g/dl (14.0-18.0); LYMPHOCYTES # 1.1 10^3/ul (0.8-2.9); LYMPHOCYTES % 21.8 % (15.0-51.0); MEAN CORPUSCULAR HEMOGLOBIN 26.2 pg (29.0-33.0); MEAN CORPUSCULAR VOLUME 84.5 fl (82.0-101.0); MEAN PLATELET VOLUME 10.7 fl (7.4-10.4); MONOCYTE # 0.7 10^3/ul (0.3-0.9); MONOCYTES % 14.3 % (0.0-11.0); NEUTROPHIL # 3.1 10^3/ul (1.6-7.5); NEUTROPHILS % 61.3 % (39.0-77.0); PLATELET COUNT 158 10^3/UL (140-415); RED BLOOD COUNT 4.46 10^6/ul (4.70-6.10); RED CELL DISTRIBUTION WIDTH 17.8 % (11.5-14.5)
[2019-03-27 07:02] LABS: MAGNESIUM 1.9 mg/dl (1.7-2.5)
[2019-03-27 07:02] LABS: PHOSPHORUS 2.9 mg/dl (2.5-4.9)
[2019-03-27 07:05] LABS: ALANINE AMINOTRANSFERASE 21 IU/L (13-69); ALBUMIN 3.1 g/dl (3.3-4.9); ALBUMIN/GLOBULIN RATIO 1.06; ALKALINE PHOSPHATASE 67 IU/L (42-121); ANION GAP 5 (5-13); ASPARTATE AMINO TRANSFERASE 21 IU/L (15-46); BILIRUBIN,INDIRECT 0.7 mg/dl (0-1.1); BILIRUBIN,TOTAL 0.7 mg/dl (0.2-1.3); BLOOD UREA NITROGEN 6 mg/dl (7-20); CARBON DIOXIDE 28 mmol/L (21-31); CHLORIDE 108 mmol/L (97-110); CREATININE 0.68 mg/dl (0.61-1.24); Estimated GFR > 60 mL/min (>60); GLUCOSE 102 mg/dl (70-220); POTASSIUM 3.7 mmol/L (3.5-5.1); SODIUM 141 mmol/L (135-144)
[2019-03-27 07:51] LABS: INR 0.92; PROTIME 12.5 Sec (11.9-14.9)
[2019-03-27] MEDS: FAMOTIDINE 20 MG INJ IV ×2 (08:04→21:03)
[2019-03-27] MEDS: ENOXAPARIN 40 MG/0.4 ML SYG SC (08:05)
[2019-03-28] MEDS: DEXTROSE 5%-0.45% NACL 1,000 ML IV (01:35)
[2019-03-28 05:46] LABS: ADD MAN DIFF? NO
[2019-03-28 05:50] LABS: BASOPHILS % 0.8 % (0.0-2.0); EOSINOPHILS # 0.1 10^3/ul (0.0-0.5); EOSINOPHILS % 1.9 % (0.0-7.0); HEMATOCRIT 36.5 % (42.0-52.0); HEMOGLOBIN 11.6 g/dl (14.0-18.0); LYMPHOCYTES # 1.2 10^3/ul (0.8-2.9); LYMPHOCYTES % 23.7 % (15.0-51.0); MEAN CORPUSCULAR HEMOGLOBIN 26.9 pg (29.0-33.0); MEAN CORPUSCULAR HGB CONC 31.8 g/dl (32.0-37.0); MEAN CORPUSCULAR VOLUME 84.7 fl (82.0-101.0); MEAN PLATELET VOLUME 10.1 fl (7.4-10.4); MONOCYTE # 0.7 10^3/ul (0.3-0.9); MONOCYTES % 13.9 % (0.0-11.0); NEUTROPHIL # 3.1 10^3/ul (1.6-7.5); NEUTROPHILS % 59.5 % (39.0-77.0); PLATELET COUNT 165 10^3/UL (140-415); RED BLOOD COUNT 4.31 10^6/ul (4.70-6.10); RED CELL DISTRIBUTION WIDTH 17.2 % (11.5-14.5)
[2019-03-28 05:50] LABS: WHITE BLOOD COUNT 5.2 10^3/ul (4.8-10.8)
[2019-03-28 06:14] LABS: PHOSPHORUS 3.2 mg/dl (2.5-4.9)
[2019-03-28 06:14] LABS: MAGNESIUM 1.9 mg/dl (1.7-2.5)
[2019-03-28 06:27] LABS: ALANINE AMINOTRANSFERASE 23 IU/L (13-69); ALKALINE PHOSPHATASE 74 IU/L (42-121); ANION GAP 7 (5-13); ASPARTATE AMINO TRANSFERASE 20 IU/L (15-46); BILIRUBIN,INDIRECT 0.5 mg/dl (0-1.1); BILIRUBIN,TOTAL 0.5 mg/dl (0.2-1.3); BLOOD UREA NITROGEN 9 mg/dl (7-20); CALCIUM 8.2 mg/dl (8.4-10.2); CARBON DIOXIDE 27 mmol/L (21-31); CHLORIDE 108 mmol/L (97-110); CREATININE 0.65 mg/dl (0.61-1.24); Estimated GFR > 60 mL/min (>60); GLUCOSE 89 mg/dl (70-220); POTASSIUM 3.8 mmol/L (3.5-5.1); SODIUM 142 mmol/L (135-144)
[2019-03-28 06:28] LABS: ALBUMIN 3.3 g/dl (3.3-4.9); ALBUMIN/GLOBULIN RATIO 1.13; TOTAL PROTEIN 6.2 g/dl (6.1-8.1)
[2019-03-28] MEDS: FAMOTIDINE 20 MG INJ IV (08:43)
[2019-03-28] MEDS: DOCUSATE SODIUM 10 MG/ML (10ML CUP) PO (08:43)
[2019-03-28] MEDS: ENOXAPARIN 40 MG/0.4 ML SYG SC (08:44)
[2019-03-28] MEDS ORDERED: IBUPROFEN 600 MG TAB PO (12:30)
== END 2019-03-28 15:07 | disposition home or self-care (01) | DRG 390 ==
LOC: PP2 03-25 01:04 → E/R 21:19
DX: K56.609 Unspecified intestinal obstruction, unspecified as to partial versus complete obstruction (principal); E87.6 Hypokalemia; J45.909 Unspecified asthma, uncomplicated; L40.9 Psoriasis, unspecified; D64.9 Anemia, unspecified; R59.0 Localized enlarged lymph nodes; Z90.49 Acquired absence of other specified parts of digestive tract; Z96.649 Presence of unspecified artificial hip joint; Z87.891 Personal history of nicotine dependence; Z86.11 Personal history of tuberculosis
CPT/HCPCS: 36415; 74018; 74176; 80048; 80053; 81001; 81003; 83690; 83735; 84100; 85025; 85610; 85730; 96361; 96374; 96375; 99285-25